=== PATIENT | female | born 1995 | race Caucasian/White ===

== ENCOUNTER 2016-09-17 15:11 | Emergency (ER) | payer SELFPAY ==
[~2016-09-17] VITALS: Ht 157.5 cm; Wt 89.5 kg
[~2016-09-17 15:11] MED LIST: CIPRO500 MG PO; FLAGYL500 MG PO; IBUPROFEN800 MG PO; LEXAPRO10 MG PO; MACROBID100 MG PO; NAPROXEN500 MG PO; NOHOMEMEDS; PYRIDIUM200 MG PO; TRILEPTAL300 MG PO; WOMEN'S ONE DA1 EACH PO; XANAX0.25 MG PO; ZOFRAN4 MG PO
[2016-09-17 16:24] LABS: ADD MIUA? NO; BILIRUBIN NEGATIVE; BLOOD NEGATIVE; COLOR YELLOW ((YELLOW)); GLUCOSE (STRIP) NEGATIVE; KETONES NEGATIVE; LEUKOCYTES NEGATIVE; NITRITE NEGATIVE; PH, URINE 6.5 (5-8); PROTEIN (STRIP) NEGATIVE; SPECIFIC GRAVITY 1.026 (1.000-1.030); UCUL ADDED? NO; UROBILINOGEN 0.2 MG/DL (0.2-1.0)
[2016-09-17] MEDS ORDERED: DIFLUCAN150 MG PO (18:05)
[2016-09-17 18:19] VITALS: BP 123/71
[2016-09-19 11:57] LABS: CHLAMYDIA TRACHOMATIS NEGATIVE; NEISSERIA GONORRHOEAE NEGATIVE
== END 2016-09-17 18:20 | disposition home or self-care (01) ==
LOC: EME 15:11 → RME 15:11
PROVIDERS: Physician Assistant
DX: R10.2 Pelvic and perineal pain (principal); B37.3 Candidiasis of vulva and vagina; R30.0 Dysuria; Z87.440 Personal history of urinary (tract) infections; F17.200 Nicotine dependence, unspecified, uncomplicated; Z88.0 Allergy status to penicillin; Z91.018 Allergy to other foods
CPT/HCPCS: 81003; 87210; 87491; 87591; 99281; 99284

== ENCOUNTER 2016-10-06 20:39 | Inpatient (IN) | payer OTHER ==
[~2016-10-06] VITALS: Ht 157.5 cm; Wt 85.4 kg
[~2016-10-06 20:39] MED LIST changes: +DIFLUCAN150 MG PO
[2016-10-06 21:46] LABS: CHLORIDE 109 mEq/L (99-109); POTASSIUM 3.9 mEq/L (3.7-5.4); SODIUM 141 mEq/L (136-147)
[2016-10-06 21:49] LABS: GLUCOSE 85 mg/dL (70-99); HEMATOCRIT 39.4 % (36.0-46.0); MCH 30.2 PG (29.0-34.0); MCV 86.2 FL (83-99); MEAN PLAT.VOLUME 9.4 uM^3 (9.5-12.4); PLATELET COUNT 247 K/uL (156-360); RBC DIS.WIDTH-CV 13.3 % (11.8-14.6); RED BLOOD COUNT 4.57 M/uL (3.80-5.20)
[2016-10-06 21:50] LABS: ANION GAP 7 MEQ/L (2-14)
[2016-10-06 21:51] LABS: TOTAL BILIRUBIN 0.6 mg/dL (0.0-1.0)
[2016-10-06 21:52] LABS: SERUM ETHYL ALCOHOL < 10 mg/dL
[2016-10-06 21:53] LABS: ALKALINE PHOSPHATASE 66 IU/L (3-129); GFR ESTIMATE (CALCULATED) > 59 mL/min/
[2016-10-06 21:54] LABS: UREA NITROGEN (BUN) 14 mg/dL (9-23)
[2016-10-06 22:47] LABS: ADD MIUA? YES; BILIRUBIN NEGATIVE; BLOOD NEGATIVE; COLOR YELLOW ((YELLOW)); GLUCOSE (STRIP) NEGATIVE; KETONES NEGATIVE; LEUKOCYTES NEGATIVE; NITRITE NEGATIVE; PROTEIN (STRIP) NEGATIVE; SPECIFIC GRAVITY 1.024 (1.000-1.030); UROBILINOGEN 0.2 MG/DL (0.2-1.0)
[2016-10-06 22:50] LABS: BACTERIA NONE SEEN /HPF; EPITHELIAL CELLS RARE /HPF; RED BLOOD CELLS 0-5 /HPF (0-5); WHITE BLOOD CELLS 0-5 /HPF (0-5)
[2016-10-06 22:52] LABS: MUCUS NONE SEEN /LPF
[2016-10-06 22:56] LABS: AMPHETAMINE NEGATIVE (500 ng/mL); BARBITURATES NEGATIVE (200 ng/mL); BENZODIAZEPINES NEGATIVE (150 ng/mL); COCAINE NEGATIVE (150 ng/mL); INTERNAL CONTROLS VALID? YES; METHADONE NEGATIVE (200 ng/mL); METHAMPHETAMINE NEGATIVE (500 ng/mL); OPIATES (MORPHINE) NEGATIVE (100 ng/mL); OXYCODONE PRESUMPTIVE POSITIVE (100 ng/mL); PHENCYCLIDINE NEGATIVE (25 ng/mL); PROPOXYPHENE NEGATIVE (300 ng/mL); THC CANNABINOIDS NEGATIVE (50 ng/mL); TRICYCLIC ANTIDEPRESSANTS NEGATIVE (300 ng/mL)
[2016-10-07 01:35] VITALS: BP 125/84
[2016-10-07 07:27] VITALS: BP 105/58
[2016-10-07 13:26] LABS: QUANTITATIVE HCG < 4.0 MIU/ML
[2016-10-07 15:37] VITALS: BP 110/69
[2016-10-08 08:06] VITALS: BP 114/55
[2016-10-08 16:18] VITALS: BP 113/56
[2016-10-09 07:50] VITALS: BP 119/75
[2016-10-09 15:52] VITALS: BP 125/77
[2016-10-10 09:30] VITALS: BP 128/66
[2016-10-10] MEDS ORDERED: LITHIUM CARBON300 M2 PO (09:37)
[2016-10-10] MEDS ORDERED: ARIPIPRAZOLE5 MG PO (09:37)
== END 2016-10-10 10:34 | disposition home or self-care (01) | DRG 885 ==
LOC: EME 20:39 → EDOF 22:55 → 1WEST 22:55
PROVIDERS: Emergency Medicine
DX: F31.5 Bipolar disorder, current episode depressed, severe, with psychotic features (principal); Z88.0 Allergy status to penicillin; Z91.018 Allergy to other foods; F17.210 Nicotine dependence, cigarettes, uncomplicated; F40.10 Social phobia, unspecified
CPT/HCPCS: 80053; 81003; 84443; 84702; 85027; 90839; 97150 GO; 97165 GO; 99281; 99284; G0480; Q0177

== ENCOUNTER 2017-02-20 22:53 | Emergency (ER) | payer OTHER ==
[~2017-02-20 22:53] MED LIST changes: -DOXYCYCLINE HY100 MG PO
== END 2017-02-20 23:22 | disposition left against medical advice (07) ==
LOC: EME 22:53
DX: F10.230 Alcohol dependence with withdrawal, uncomplicated (principal); Z53.21 Procedure and treatment not carried out due to patient leaving prior to being seen by health care provider

== ENCOUNTER → 2017-02-20 | Emergency (ER) | payer OTHER ==
[~2017-02-20] VITALS: Ht 160 cm; Wt 86.6 kg
[~2017-02-20] MED LIST changes: +ARIPIPRAZOLE5 MG PO; +DOXYCYCLINE HY100 MG PO; +LITHIUM CARBON300 M2 PO
[2017-02-20 20:15] VITALS: BP 139/102
== END | disposition left against medical advice (07) ==
LOC: EME 20:00
DX: Z00.8 Encounter for other general examination (principal); Z53.21 Procedure and treatment not carried out due to patient leaving prior to being seen by health care provider

== ENCOUNTER 2017-02-24 01:06 | Emergency (ER) | payer OTHER ==
[~2017-02-24] VITALS: Ht 160 cm; Wt 87.2 kg
[2017-02-24] MEDS ORDERED: DOXYCYCLINE HY100 MG PO (01:25)
[2017-02-24 01:44] VITALS: BP 133/95
== END 2017-02-24 01:45 | disposition home or self-care (01) ==
LOC: EME 01:06
DX: L03.114 Cellulitis of left upper limb (principal); Z88.0 Allergy status to penicillin
CPT/HCPCS: 99281; 99284